=== PATIENT | male | born 1965 | race Caucasian/White ===

== ENCOUNTER 2019-09-29 12:56 | Emergency (ER) | payer OTHER, BC, SELFPAY ==
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
[2019-09-29 13:04] VITALS: BP 155/109; PULSE 95; RESP 18; TEMP 36.3; O2SAT 100
[2019-09-29] MEDS: KETOROLAC (*BKC) 60 MG/2 ML VIAL IM (13:52)
[2019-09-29 14:02] VITALS: BP 140/106; PULSE 89; RESP 17; O2SAT 99
== END 2019-09-29 14:05 | disposition home or self-care (01) ==
LOC: ANHED 13:45
PROVIDERS: Emergency Provider Emergency Medicine
DX: S16.1XXA Strain of muscle, fascia and tendon at neck level, initial encounter (principal); V47.5XXA Car driver injured in collision with fixed or stationary object in traffic accident, initial encounter
CPT/HCPCS: 96372; 99283; J1885

== ENCOUNTER 2023-09-15 08:30 | Emergency (ER) | payer BC, SELFPAY ==
[2023-09-15] VITALS (8 sets, daily range): BP systolic 93–133; BP diastolic 59–82; PULSE 65–98; RESP 14–18; TEMP 36.5; O2SAT 96–100
--- NOTE | ~2023-09-15 | CT_ITS ---
EXAMINATION: CT abdomen pelvis w con DATE: 09/15/2023 10:33 INDICATION: Abdominal pain and vomiting. TECHNIQUE: Computed tomography (CT) of the abdomen and pelvis was performed with 100 mL Omnipaque 350 intravenous contrast. Automated exposure control and iterative reconstruction technique were employe d. The dose-length product was 1223.24 mGy-cm. COMPARISON: CT abdomen and pelvis 10/22/2015 FINDINGS: The visualized portions of the lung bases demonstrate mild atelectasis. No pleural effusion . The heart size is normal. No pericardial effusion. There is a small sliding hiatal hernia. There is a 2.0 cm cyst in the liver. There are gallstones in the gallbladder, which is normal in size. The sp dany, pancreas, adrenal glands, and right kidney are normal. There is a 1.4 cm cyst in the left kidne y. The prostate is moderately enlarged. There are no dilated loops of bowel. There is diverticulosis of the colon without evidence of diverticulitis. The appendix is normal. There are no pathologically enlarged lymph nodes. There is a small volume of pelvic ascites. There is fat stranding in the small bowel mesentery. There is mild thoracic and lumbar spondylosis. There is mild chronic anterior wedgin g of multiple thoracic vertebral bodies. IMPRESSION: 1. Small sliding hiatal hernia. 2. Cholelithiasis. No evidence of acute cholecystitis. 3. Fat stranding in the small bowel mesentery, consistent with edema versus inflammation (mesenteric panniculitis). 4. Small volume of ascites. Reviewed, dictated and finalized at location A. IMPRESSION: 1. Small sliding hiatal hernia. 2. Cholelithiasis. No evidence of acute cholecystitis. 3. Fat stranding in the small bowel mesentery, consistent with edema versus inf lammation (mesenteric panniculitis). 4. Small volume of ascites.
--- NOTE | ~2023-09-15 | US_ITS ---
EXAMINATION: US abdomen limited DATE: 09/15/2023 12:35 INDICATION: Abdominal pain. Vomiting. Cholelithiasis. TECHNIQUE: Multiple grayscale and Doppler ultrasound images of the abdomen were obtained. COMPARISON: CT abdomen and pelvis 09/15/2023 FINDINGS: The visualized portions of the head of the pancreas are normal. There is diffuse hepatic st eatosis. There is normal flow in main portal vein. The gallbladder is normal in size. There are galls tones in the gallbladder. No gallbladder wall thickening or sonographic Diaz sign. The common duct is normal and measures 4 mm. IMPRESSION: 1. Cholelithiasis. No evidence of acute cholecystitis. 2. Diffuse hepatic steatosis. Reviewed, dictated and finalized at location A.
[2023-09-15 09:15] LABS: Basophils Percent Auto 0.1 % (0.2-1.2); Eosinophils Absolute Auto 0.1 K/mm3 (0-0.3); Eosinophils Percent Auto 0.9 % (0-4.4); Hematocrit 49.7 % (42.0-52.0); Hemoglobin 16.8 g/dL (14.0-18.0); Immature Granulocyte Absolute 0.03 K/mm3 (0.00-0.031); Immature Granulocyte Percent A 0.3 % (0-0.5); Lymphocytes Absolute Auto 2.97 K/mm3 (0.9-3.2); Lymphocytes Percent Auto 29.4 % (18.3-44.2); Mean Corpuscular HGB Conc 33.8 g/dl (32-36); Mean Corpuscular Hemoglobin 30.5 pg (26-34); Mean Corpuscular Volume 90.4 fl (80-100); Monocytes Absolute Auto 0.3 K/mm3 (0.1-0.6); Monocytes Percent Auto 3.3 % (2.6-8.5); Neutrophils Absolute Auto 6.7 K/mm3 (1.3-6.7); Platelet Count Result 357 k/mm3 (150-375); Red Cell Distribution Width 13.3 % (11.5-14.5); White Blood Count 10.1 K/mm3 (4.5-10.0)
--- NOTE | 2023-09-15 09:23 | ED.NAVMDI ---
HPI - Nausea/Vomiting/Diarrhea General Chief complaint: Nausea/Vomiting/Diarrhea Stated complaint: vomitting, diarrhea Time Seen by Provider: 09/15/23 09:11 Source: patient Mode of arrival: ambulatory Limitations: no limitations History of Present Illness HPI Narrative: 58-year-old male that presents to the emergency department for abdominal pain and vomiting. Reports he woke up yesterday morning with abdominal pain, chills and sweats. Reports similar episodes this morning. Also reports he has had diarrhea and fevers. Reports several episodes of vomiting. Reports this morning he took a dose of Gaviscon and then went back to bed. When he woke up he was diffusely itchy with rash which prompted him to be seen. Related Data Home Medications Medication Instructions Recorded Confirmed cyclobenzaprine 10 mg tablet 10 mg PO 09/29/19 fluticasone propionate 50 intranasal 09/29/19 mcg/actuation nasal spray,suspension Allergies Allergy/AdvReac Type Severity Reaction Status Date / Time No Known Allergies Allergy Unknown Verified 09/29/19 13:10 Review of Systems Review of Systems: CONSTITUTIONAL: Reports fever GASTROINTESTINAL: Reports abdominal pain, nausea, vomiting, and diarrhea. SKIN: Reports rash and itching. All systems reviewed & are unremarkable except as noted in HPI and below PMFSH Past Medical History Medical History (Updated 09/15/23 @ 13:50 by Ann Núñez PA-C) History of BPH Social History Social History Smoking status: Never smoker Exam Narrative: GENERAL: Well-appearing, well-nourished, and in no acute distress. HEAD: Normocephalic, atraumatic. EYES: EOMI. ENT: Mucous membranes moist. Oropharynx without tonsillar hypertrophy exudate or other lesions. No swelling of the mouth or throat NECK: Supple. No adenopathy or masses. CHEST: Clear to auscultation. No respiratory distress. No wheezes rales or rhonchi HEART: Regular rate and rhythm. No murmur heard. Normal peripheral pulses. ABDOMEN: Soft, nontender, nondistended, normal active bowel sounds. EXTREMITIES: Normal range of motion. No edema. SKIN: Warm, dry. Urticaria NEURO: No focal deficits. Alert and oriented x3. PSYCH: Normal mood and affect Course Course Emergency Course: Patient updated on his workup. Reports relief after fluids, antihistamines, and antiemetic Vital Signs Vital signs: Vital Signs Temperature 97.7 F 09/15/23 08:33 Pulse Rate 98 09/15/23 08:33 Respiratory Rate 16 09/15/23 08:33 Blood Pressure 93/59 L 09/15/23 08:33 Pulse Oximetry 96 09/15/23 08:33 Temperature 97.7 F 09/15/23 08:33 Pulse Rate 74 09/15/23 13:38 Respiratory Rate 17 09/15/23 13:38 Blood Pressure 121/81 09/15/23 13:38 Pulse Oximetry 97 09/15/23 13:38 MDM - Nausea/Vomiting/Diarrhea MDM Narrative Medical decision making narrative: Patient presents to the emergency department for itchy rash. Also reporting abdominal pain, vomiting and diarrhea since yesterday. He is afebrile and nontoxic appearing. His 1st blood pressure was a little soft, this normalized with IV fluids. Urticaria present upon arrival. This was relieved after antihistamines and steroid. CBC with mild leukocytosis to 10.1. Hemoglobin is normal. Metabolic panel and lipase without concerning findings. Lactic acid is not elevated. CT abdomen and pelvis shows hiatal hernia. Cholelithiasis without evidence of cholecystitis. Nonspecific fat stranding around the small bowel mesentery. Small volume of ascites. Right upper quadrant ultrasound once again shows cholelithiasis without evidence of cholecystitis. Patient updated on his workup and agrees with plan of care. Reports relief after fluids, antihistamines, and antiemetic. Able to tolerate p.o. challenge. He is to follow up with his primary provider. He was given warnings to return to the ER Differential Diagnosis
[2023-09-15] MEDS: ONDANSETRON INJ 4 MG/2 ML VIAL IV PUSH (09:30)
[2023-09-15] MEDS: FAMOTIDINE 20 MG/2 ML VIAL IV PUSH (09:30)
[2023-09-15] MEDS: SODIUM CHLORIDE 0.9% IV 1,000 ML 999 ML IV CONT (09:31)
[2023-09-15] MEDS: diphenhydrAMINE HCl INJ 50 MG/ML VIAL 25 MG IV PUSH (09:36)
[2023-09-15] MEDS: methylPREDNISolone SOD SUCC 125 MG VIAL IV PUSH (09:36)
[2023-09-15 09:42] LABS: Alanine Aminotransferase 40 U/L (6-50); Albumin Level 4.5 g/dL (3.5-5.1); Alkaline Phosphatase 64 U/L (38-126); Anion Gap 9 mmol/L (4-12); Aspartate Amino Transferase 35 U/L (17-59); Bilirubin,Total 0.7 mg/dL (0.2-1.3); Blood Urea Nitrogen 14 mg/dL (9-20); Calcium 9.7 mg/dL (8.4-10.2); Carbon Dioxide 21 mmol/L (22-30); Chloride 108 mmol/L (98-107); Estimated CRCL calculation 91 ml/min; Estimated Glomerular Filt Rate > 60; Glucose 157 mg/dL (65-110); Lipase 68 U/L (23-300); Potassium 4.5 mmol/L (3.4-5.0); Sodium 138 mmol/L (137-145)
[2023-09-15 11:32] LABS: Lactic Acid Reflex 1.8 mmol/L (0.7-2.0)
[2023-09-15 11:38] LABS: CRP 1.8 mg/dL (<1.0)
[2023-09-15 12:08] LABS: Erythrocyte Sedimentation Rate 6 mm/hr (0-20)
[2023-09-15 13:47] LABS: Appearance Urine Clear (Clear); Bacteria Urine None Seen /hpf; Bilirubin Urine Negative (Negative); Blood Urine Negative (Negative); Color Urine Yellow (Yellow); Glucose Urine UA Negative (Negative); Ketones Urine Negative (Negative); Leukocyte Esterase Ur Negative LEU/UL (Negative); Nitrate Urine Negative (Negative); Non Pathogenic Casts 0-2; Protein Urine Trace mg/dL (Negative); RBC Urine 0-2 /hpf (0-2); Squamous Epithelial Cell Urine None Seen /hpf (Few); Urobilinogen Urine 0.2 mg/dL (<2.0); WBC Urine 0-5 /hpf (0-3); pH Urine 5.5 (5.0-9.0)
[2023-09-15 14:04] LABS: Add Urine Microscopic? YES; Specific Grav Ur 1.083 (1.001-1.035)
== END 2023-09-15 13:58 | disposition home or self-care (01) ==
PROVIDERS: Emergency Medicine; Emergency Provider Physician Assistant; PCP Family Medicine
DX: T78.40XA Allergy, unspecified, initial encounter (principal); R21 Rash and other nonspecific skin eruption; K52.9 Noninfective gastroenteritis and colitis, unspecified; K80.20 Calculus of gallbladder without cholecystitis without obstruction; N40.0 Benign prostatic hyperplasia without lower urinary tract symptoms; K44.9 Diaphragmatic hernia without obstruction or gangrene; K76.0 Fatty (change of) liver, not elsewhere classified; X58.XXXA Exposure to other specified factors, initial encounter
CPT/HCPCS: 36415; 74177; 76705; 80053; 81001; 83605; 83690; 85025; 85652; 86140; 96361; 96374; 96375; 99284; J1200; J2405; J2930; J7030; Q9967